=== PATIENT | male | born 1965 | race Caucasian/White ===

== ENCOUNTER 2017-08-27 01:48 | Inpatient (IN) | payer MEDICAID ==
[~2017-08-27] VITALS: Ht 190.5 cm; Wt 79.8 kg
[2017-08-27] VITALS (7 sets, daily range): BP systolic 120–156
[2017-08-27] MEDS ORDERED: IPRATROPIUM/ALBUTEROL SULFATE 3 ML AMPUL.NEB ONE (01:55)
[2017-08-27 02:25] LABS: BASOPHILS # (AUTO) 0.1 K/uL (0.0-0.2); BASOPHILS % (AUTO) 0.5 % (0.0-2.0); EOSINOPHILS # (AUTO) 0.4 K/uL (0.0-0.4); EOSINOPHILS % (AUTO) 2.9 % (0.0-4.0); HEMOGLOBIN 9.9 g/dL (14.0-18.0); MEAN CORPUSCULAR HEMOGLOBIN 33 pg (27-31); MEAN CORPUSCULAR HGB CONC 32 % (32-36); MEAN CORPUSCULAR VOLUME 103 fL (79.0-98.0); MONOCYTES # (AUTO) 0.8 K/uL (0.0-1.0); MONOCYTES % (AUTO) 5.9 % (1.7-9.3); NEUTROPHILS # (AUTO) 11.6 K/uL (1.8-7.7); NEUTROPHILS % (AUTO) 83.7 % (40.0-70.0); PLATELET COUNT (AUTO) 405 K/uL (130-430); RED BLOOD CELL COUNT(AUTO) 3.01 MIL/uL (4.2-6.2); RED CELL DISTRIBUTION WIDTH 17.8 % (9.0-15.0); WHITE BLOOD COUNT (AUTO) 13.9 K/uL (4.8-10.8)
[2017-08-27 02:41] LABS: CALCIUM 7.7 mg/dL (8.4-11.0); CREATININE 3.41 mg/dL (0.55-1.30)
[2017-08-27 02:46] LABS: ALBUMIN 2.8 g/dL (3.4-4.8); TOTAL BILIRUBIN 0.4 mg/dL (0.0-1.0)
[2017-08-27] MEDS ORDERED: MORPHINE 2 MG/ML INJ. SYRINGE IVP ONE (03:00)
[2017-08-27] MEDS ORDERED: VITA1CAP PO (04:08)
[2017-08-27] MEDS ORDERED: SEREVENT IH (04:08)
[2017-08-27] MEDS ORDERED: FINA5TAB3 PO (04:08)
[2017-08-27] MEDS ORDERED: FURO80TA86 PO (04:08)
[2017-08-27] MEDS ORDERED: AMLO5TAB4 PO (04:08)
[2017-08-27] MEDS ORDERED: ISOS20TA8 PO (04:08)
[2017-08-27] MEDS ORDERED: FERR-57 PO (04:08)
[2017-08-27] MEDS ORDERED: CEL20 PO (04:08)
[2017-08-27] MEDS ORDERED: QUET400T PO (04:08)
[2017-08-27] MEDS ORDERED: NITR0.4T6 SL (04:08)
[2017-08-27] MEDS ORDERED: PRED10TA PO (04:08)
[2017-08-27] MEDS ORDERED: LORA1TAB PO (04:08)
[2017-08-27] MEDS ORDERED: LORA-259 PO (04:08)
[2017-08-27] MEDS ORDERED: GUAI-723 PO (04:08)
[2017-08-27] MEDS ORDERED: PRO40 PO (04:08)
[2017-08-27] MEDS ORDERED: NICO1PAT25 TP (04:08)
[2017-08-27] MEDS ORDERED: SERT50TA12 PO (04:08)
[2017-08-27] MEDS: INSULIN REGULAR, HUMAN 100 UNITS/ML, 10 ML VIAL (novoLIN R) SUBCUT PRN ×2 (06:22→21:48)
[2017-08-27] MEDS ORDERED: MAGNESIUM SULFATE 50 ML IV PRN (08:30)
[2017-08-27] MEDS ORDERED: ONDANSETRON HCL 4 MG/2 ML VIAL IVP PRN (08:30)
[2017-08-27] MEDS ORDERED: MORPHINE 2 MG/ML INJ. SYRINGE IVP PRN ×2 (08:30)
[2017-08-27] MEDS ORDERED: ACETAMINOPHEN 325 MG TABLET PO PRN (08:30)
[2017-08-27] MEDS ORDERED: ZOLPIDEM TARTRATE 5 MG TABLET PO PRN (08:30)
[2017-08-27] MEDS ORDERED: LORazepam 2 MG/ML VIAL IVP PRN (08:30)
[2017-08-27] MEDS ORDERED: POTASSIUM CHLORIDE 20 MEQ TAB.PRT.SR PO PRN (08:30)
[2017-08-27] MEDS ORDERED: DOCUSATE SODIUM 100 MG CAPSULE PO PRN (08:30)
[2017-08-27] MEDS ORDERED: SALMETEROL XINAFOATE 50 MCG 1 EA DISK.W.DEV INH SCH (09:00)
[2017-08-27] MEDS ORDERED: FERROUS SULFATE 325 MG TABLET.DR PO ONE (13:30)
[2017-08-27] MEDS ORDERED: HEPARIN SODIUM,PORCINE 5000 UNITS/ML VIAL SUBCUT ONE (13:30)
[2017-08-27] MEDS ORDERED: QUEtiapine FUMARATE 100 MG TABLET PO ONE (13:30)
[2017-08-27] MEDS ORDERED: ISOSORBIDE DINITRATE 20 MG TABLET (ISORDIL) PO ONE (13:30)
[2017-08-27] MEDS ORDERED: NICOTINE 14 MG/24 HR PATCH.TD24 TD ONE (13:30)
[2017-08-27] MEDS ORDERED: amLODIPine BESYLATE 5 MG TABLET PO ONE (13:30)
[2017-08-27] MEDS ORDERED: methylPREDNISolone SOD SUCC 40 MG/ML VIAL IVP ONE (13:30)
[2017-08-27] MEDS ORDERED: FINASTERIDE 5 MG TABLET (PROSCAR) PO ONE (13:30)
[2017-08-27] MEDS ORDERED: CITALOPRAM HYDROBROMIDE 20 MG TABLET PO ONE (13:30)
[2017-08-27] MEDS: methylPREDNISolone SOD SUCC 40 MG/ML VIAL IVP SCH (21:34)
[2017-08-27] MEDS: HEPARIN SODIUM,PORCINE 5000 UNITS/ML VIAL SUBCUT SCH (21:38)
[2017-08-27] MEDS: ISOSORBIDE DINITRATE 20 MG TABLET (ISORDIL) PO SCH (21:42)
[2017-08-27] MEDS: FERROUS SULFATE 325 MG TABLET.DR PO SCH (21:42)
[2017-08-27] MEDS: SERTRALINE HCL 50 MG TABLET PO SCH (21:43)
[2017-08-27] MEDS: QUEtiapine FUMARATE 100 MG TABLET PO SCH (21:43)
[2017-08-27] MEDS: LEVOFLOXACIN 250 MG/D5W 50 ML IV SCH (21:50)
[2017-08-27] MEDS: ALBUTEROL SULFATE 0.083% 2.5 MG/3 ML VIAL.NEB INH PRN (21:55)
[2017-08-28 02:00] VITALS: BP_SYST 159
[2017-08-28 04:34] VITALS: BP_SYST 141
[2017-08-28] MEDS: INSULIN REGULAR, HUMAN 100 UNITS/ML, 10 ML VIAL (novoLIN R) SUBCUT PRN ×3 (06:13→20:26)
[2017-08-28 07:55] LABS: HEMATOCRIT 29.8 % (36-54); HEMOGLOBIN 9.7 g/dL (14.0-18.0); MEAN CORPUSCULAR HEMOGLOBIN 34 pg (27-31); MEAN CORPUSCULAR HGB CONC 33 % (32-36); MEAN CORPUSCULAR VOLUME 103 fL (79.0-98.0); PLATELET COUNT (AUTO) 374 K/uL (130-430); RED BLOOD CELL COUNT(AUTO) 2.89 MIL/uL (4.2-6.2); RED CELL DISTRIBUTION WIDTH 16.7 % (9.0-15.0); WHITE BLOOD COUNT (AUTO) 10.8 K/uL (4.8-10.8)
[2017-08-28 08:04] LABS: CALCIUM 8.1 mg/dL (8.4-11.0); CREATININE 3.2 mg/dL (0.55-1.30); POTASSIUM 4.9 mmol/L (3.5-5.1)
[2017-08-28] MEDS: QUEtiapine FUMARATE 100 MG TABLET PO SCH ×2 (09:00→20:12)
[2017-08-28] MEDS: NICOTINE 14 MG/24 HR PATCH.TD24 TD SCH (09:00)
[2017-08-28] MEDS: methylPREDNISolone SOD SUCC 40 MG/ML VIAL IVP SCH ×2 (10:25→20:12)
[2017-08-28] MEDS: FINASTERIDE 5 MG TABLET (PROSCAR) PO SCH (10:27)
[2017-08-28] MEDS: amLODIPine BESYLATE 5 MG TABLET PO SCH (10:28)
[2017-08-28] MEDS: CITALOPRAM HYDROBROMIDE 20 MG TABLET PO SCH (10:29)
[2017-08-28] MEDS: ISOSORBIDE DINITRATE 20 MG TABLET (ISORDIL) PO SCH ×2 (10:29→20:12)
[2017-08-28] MEDS: FERROUS SULFATE 325 MG TABLET.DR PO SCH ×2 (10:29→20:12)
[2017-08-28] MEDS: HEPARIN SODIUM,PORCINE 5000 UNITS/ML VIAL SUBCUT SCH ×2 (10:30→10:34)
[2017-08-28 10:36] VITALS: BP_SYST 194
[2017-08-28 11:39] LABS: LYMPHOCYTES % (MANUAL) 10 % (20-46)
[2017-08-28 11:40] LABS: BASOPHILS % (MANUAL) 0 % (0-2); EOSINOPHILS % (MANUAL) 0 % (0-7); MONOCYTES % (MANUAL) 2 % (0-11)
[2017-08-28] MEDS: metroNIDAZOLE 250 mg/NS 50 ML IV SCH ×2 (14:49→22:25)
[2017-08-28] MEDS: ALBUTEROL SULFATE 0.083% 2.5 MG/3 ML VIAL.NEB INH PRN (15:46)
[2017-08-28 16:00] VITALS: BP_SYST 183
[2017-08-28] MEDS: cloNIDine HCL 0.2 MG TABLET PO PRN (17:06)
[2017-08-28 18:31] VITALS: BP_SYST 155
[2017-08-28 20:00] VITALS: BP_SYST 157
[2017-08-28] MEDS: SERTRALINE HCL 50 MG TABLET PO SCH (20:14)
[2017-08-28] MEDS: LEVOFLOXACIN 250 MG/D5W 50 ML IV SCH (20:22)
[2017-08-29] MEDS: cloNIDine HCL 0.2 MG TABLET PO PRN (03:42)
[2017-08-29 03:46] VITALS: BP_SYST 181
[2017-08-29] MEDS: metroNIDAZOLE 250 mg/NS 50 ML IV SCH (06:20)
[2017-08-29 06:30] VITALS: BP_SYST 158
[2017-08-29 06:59] LABS: HEMATOCRIT 29.2 % (36-54); HEMOGLOBIN 9.4 g/dL (14.0-18.0); MEAN CORPUSCULAR HEMOGLOBIN 33 pg (27-31); MEAN CORPUSCULAR HGB CONC 32 % (32-36); MEAN CORPUSCULAR VOLUME 102 fL (79.0-98.0); PLATELET COUNT (AUTO) 351 K/uL (130-430); RED BLOOD CELL COUNT(AUTO) 2.85 MIL/uL (4.2-6.2); RED CELL DISTRIBUTION WIDTH 17.2 % (9.0-15.0); WHITE BLOOD COUNT (AUTO) 9.6 K/uL (4.8-10.8)
[2017-08-29 07:16] LABS: CALCIUM 7.9 mg/dL (8.4-11.0); CREATININE 4.03 mg/dL (0.55-1.30); POTASSIUM 4.4 mmol/L (3.5-5.1)
[2017-08-29] MEDS: methylPREDNISolone SOD SUCC 40 MG/ML VIAL IVP SCH (08:28)
[2017-08-29] MEDS: HEPARIN SODIUM,PORCINE 5000 UNITS/ML VIAL SUBCUT SCH (08:28)
[2017-08-29] MEDS: CITALOPRAM HYDROBROMIDE 20 MG TABLET PO SCH (08:29)
[2017-08-29] MEDS: FERROUS SULFATE 325 MG TABLET.DR PO SCH (08:29)
[2017-08-29] MEDS: QUEtiapine FUMARATE 100 MG TABLET PO SCH (08:30)
[2017-08-29] MEDS: amLODIPine BESYLATE 5 MG TABLET PO SCH (08:30)
[2017-08-29] MEDS: NICOTINE 14 MG/24 HR PATCH.TD24 TD SCH (08:31)
[2017-08-29] MEDS: FINASTERIDE 5 MG TABLET (PROSCAR) PO SCH (08:31)
[2017-08-29] MEDS: ISOSORBIDE DINITRATE 20 MG TABLET (ISORDIL) PO SCH (08:31)
[2017-08-29 08:33] VITALS: BP_SYST 184
[2017-08-29] MEDS ORDERED: LEVO250T20 PO (09:13)
[2017-08-29] MEDS ORDERED: FLA250 PO (09:13)
[2017-08-29 09:35] VITALS: BP_SYST 158
[2017-08-29 10:25] LABS: BASOPHILS % (MANUAL) 0 % (0-2); EOSINOPHILS % (MANUAL) 3 % (0-7); LYMPHOCYTES % (MANUAL) 17 % (20-46); MONOCYTES % (MANUAL) 10 % (0-11)
== END 2017-08-29 09:55 | disposition home or self-care (01) | DRG 720 ==
LOC: SED 01:48 → STU 03:59
PROVIDERS: ADMIT General Practice; ATTEND General Practice
PROC: 5A1D70Z Performance of Urinary Filtration, Intermittent, Less than 6 Hours Per Day (ICD-10-PCS; principal; 2017-08-27)
PROC: 5A09357 Assistance with Respiratory Ventilation, Less than 24 Consecutive Hours, Continuous Positive Airway Pressure (ICD-10-PCS; 2017-08-27)
DX: A41.9 Sepsis, unspecified organism (principal); J96.21 Acute and chronic respiratory failure with hypoxia; N17.0 Acute kidney failure with tubular necrosis; J69.0 Pneumonitis due to inhalation of food and vomit; I50.41 Acute combined systolic (congestive) and diastolic (congestive) heart failure; E44.0 Moderate protein-calorie malnutrition; B38.9 Coccidioidomycosis, unspecified; I13.2 Hypertensive heart and chronic kidney disease with heart failure and with stage 5 chronic kidney disease, or end stage renal disease; E11.22 Type 2 diabetes mellitus with diabetic chronic kidney disease; N18.6 End stage renal disease; E11.51 Type 2 diabetes mellitus with diabetic peripheral angiopathy without gangrene; J44.0 Chronic obstructive pulmonary disease with (acute) lower respiratory infection; D63.8 Anemia in other chronic diseases classified elsewhere; F17.200 Nicotine dependence, unspecified, uncomplicated; F32.9 Major depressive disorder, single episode, unspecified; J20.9 Acute bronchitis, unspecified; K21.9 Gastro-esophageal reflux disease without esophagitis; N40.0 Benign prostatic hyperplasia without lower urinary tract symptoms; F41.9 Anxiety disorder, unspecified; M54.9 Dorsalgia, unspecified; J44.1 Chronic obstructive pulmonary disease with (acute) exacerbation; Z91.19 Patient's noncompliance with other medical treatment and regimen; Z99.2 Dependence on renal dialysis; I25.2 Old myocardial infarction; Z88.0 Allergy status to penicillin; Z68.22 Body mass index [BMI] 22.0-22.9, adult
CPT/HCPCS: 36415; 71010; 71250-TC; 80048; 80053; 82962; 83036; 83605; 83735-TC; 83880; 84484; 85007; 85025; 85027; 87040-TC; 87081; 90935; 93005; 94640; 94660; 94760; 96365; 96375; 99285; J1030; J1644; J1815; J1956; J2060; J2270; J3490; J7030; J7050